=== PATIENT | male | born 1990 | race Two or more races ===

== ENCOUNTER 2021-07-25 10:03 | Emergency (ER) | payer OTHER ==
[2021-07-25 10:22] VITALS: BP 150/87; PULSE 105; TEMP 98.1; BMI 33.4
[2021-07-25] MEDS ORDERED: KETOROLAC TROMETHAMINE 30 MG/1 ML VIAL IM ONE (11:24)
[2021-07-25] MEDS ORDERED: METHOCARBAMOL 500 MG TABLET PO ONE (11:27)
[2021-07-25] MEDS ORDERED: KETOROLAC TROMETHAMINE 30 MG/1 ML VIAL ONE ×2 (11:28)
[2021-07-25] MEDS ORDERED: METHOCARBAMOL 500 MG TABLET ONE (11:28)
== END 2021-07-25 11:45 | disposition home or self-care (01) ==
LOC: JERFT 10:03
PROC: 3E0233Z Introduction of Anti-inflammatory into Muscle, Percutaneous Approach (ICD-10-PCS; principal; 2021-07-25)
DX: M54.50 Low back pain, unspecified (principal)
CPT/HCPCS: 99283-25